=== PATIENT | male | born 1935 | race Caucasian/White ===

== ENCOUNTER 2016-06-02 03:44 | Emergency (ER) | payer MEDICARE, BC ==
[2016-06-02] MEDS ORDERED: TRAMADOL HCL 50 MG TABLET PO ONE ×2 (04:38→10:45)
--- NOTE | 2016-06-02 05:14 | ER Document Report ---
ED General - General Chief Complaint: Thigh Pain Stated Complaint: LEG PAIN Notes: Patient is a 1-year-old male who presents with complaint of hip pain. Patient' s history of hip replacement left hip. Says he symptoms have some arthritis in his right hip. Patient says that he is thinking about attempting to roll in bed at the longterm. He says he occasionally has to try enroll. His diabetic foot ulcers which are being treated. He says his son develop pain in both hips. The nursing facility given total. He says this relieved the pain is left. Still has some pain in his right hip and therefore he was sent to the ER because of some continued pain. He did not fall. He did not have any injury to his hip. Has no other complaints at this time. He does have a allergy to oxycodone due to history of hallucinations when taking it. He currently takes no other pain medications other than Tylenol. He denies any pain outside. No new pain in the thighs or knees. TRAVEL OUTSIDE OF THE [place] IN LAST 30 DAYS: No - Related Data Allergies/Adverse Reactions: acetaminophen [From Percocet] Allergy (Verified 01/02/16 17:52) oxycodone HCl [From Percocet] Allergy (Verified 01/02/16 17:52) Past Medical History - Social History Smoking Status: Former Smoker Frequency of alcohol use: None Drug Abuse: None Family History: Reviewed & Not Pertinent Patient has suicidal ideation: No Patient has homicidal ideation: No - Past Medical History Cardiac Medical History: Reports: Hx Hypertension Pulmonary Medical History: Reports: Hx COPD Renal/ Medical History: Reports: Hx Benign Prostatic Hyperplasia. Denies: Hx Peritoneal Dialysis Musculoskeltal Medical History: Reports Hx Arthritis Psychiatric Medical History: Reports: Hx Depression Past Surgical History: Reports: Hx Orthopedic Surgery - L hip replacement - Immunizations Hx Diphtheria, Pertussis, Tetanus Vaccination: Yes - unsure Hx Pneumococcal Vaccination: 12/31/15 Immunizations Comment: this is a [facility] pt who states he got flu and pneumonia maybe 100 days ago Review of Systems - Review of Systems Notes: My Normal Review Basic REVIEW OF SYSTEMS: CONSTITUTIONAL : Denies fever, chills, or sweats. Denies recent illness. RESPIRATORY: Denies cough, cold, or chest congestion. Denies shortness of breath, difficulty breathing, or wheezing. GASTROINTESTINAL: Denies abdominal pain. Denies nausea, vomiting, or diarrhea. Denies constipation. Last BM: MUSCULOSKELETAL: Bilateral hip pain. SKIN: Denies rash or skin lesions. HEMATOLOGIC : Denies easy bruising or bleeding. NEUROLOGICAL: Denies sensory or motor loss. ALL OTHER SYSTEMS REVIEWED AND NEGATIVE. Physical Exam - Vital signs Vitals: Temp Pulse Resp BP Pulse Ox 98.3 F 76 16 109/50 L 94 06/02/16 04:02 06/02/16 04:02 06/02/16 04:02 06/02/16 04:02 06/02/16 04:02 - Notes Notes: General Appearance: Well nourished, alert, cooperative, no acute distress, no obvious discomfort. Well-appearing. Vitals: reviewed, See vital signs table. Eyes: PERRL, EOMI, Conjuctiva clear Mouth: No decreasd moisture Lungs: No wheezing, No rales, No rhonci, No accessory muscle use, good air exchange bilaterally. Heart: Normal rate, Regular rythm, No murmur, no rub Abdomen: Normal BS, soft, No rigidity, No abdominal tenderness, No guarding, no rebound, no abdominal masses, no organomegaly Extremities: strength 5/5 in all extremities, good pulses in all extremities, no pain to palpation of left hip. Mild pain with range of motion of left hip. No pain to palpation left knee or lower leg. Patient has mild pain to palpation of the right hip. Patient has surgical increased pain when I put the hip through range of motion. The hip is not stiff. Is not red or swollen., no edema. Good peripheral pulses in both feet. Skin: warm, dry, appropriate color, no rash Neuro: speech clear, oriented x 3, normal affect, responds appropriately to questions. Course - Vital Signs Vital signs: Temp Pulse Resp BP Pulse Ox 98.3 F 76 16 109/50 L 94 06/02/16 04:02 06/02/16 04:02 06/02/16 04:02 06/02/16 04:02 06/02/16 04:02 - Transfer of Care Notes: 06/02/16 06:04 After the half a tablet of Ultram the patient is feeling much improved. He had no adverse effects. No hallucinations. He had no nausea vomiting. He looks very well. I'll write prescription of this for breakthrough pain to take Tylenol Sinus helping his pain. His pain seems very musculoskeletal on exam. His is reproduced with range of motion of the hip. This no redness or swelling or warmth to the hip. This no stiffness to suggest infection. I encourage patient to return to ER if has worsening pain, fevers, or feels unwell. Patient agrees with plan will be discharged home. Dictation of this chart was performed using voice recognition software; therefore, there may be some unintended grammatical errors. Discharge - Discharge Clinical Impression: Hip pain, right Condition: Good Disposition: HOME, SELF-CARE Additional Instructions: Please return to the ER immediately if you develop worsening pain, fevers, or feel unwell. Please stop taking the medication if it is causes vomiting, hallucinations, or is making you feel unwell. Please follow up with your doctor in 1-2 days for reevaluation. Prescriptions: Tramadol HCl [Ultram 50 mg Tablet] 25 mg PO Q6HP PRN #30 tablet PRN Reason: Referrals: SUNITA CONWAY MD [Primary Care Provider] - Follow up tomorrow
--- NOTE | 2016-06-02 10:46 | ER Document Report ---
Doctor's Note Notes: 06/02/16 10:46 Nurses getting ready discharge patient he requested additional Ultram and looked into the chart he got a half tablet of Ultram which helped this pain is being discharged home on Ultram psych him an additional half tablet of Ultram.
[2016-06-02 11:59] VITALS: BP 125/69
== END 2016-06-02 12:00 | disposition home or self-care (01) ==
LOC: ER 03:44
DX: M25.551 Pain in right hip (principal); M79.652 Pain in left thigh; Z87.891 Personal history of nicotine dependence
CPT/HCPCS: 99283; A9270

== ENCOUNTER → 2018-02-09 | Outpatient (CLI) | payer MEDICARE, BC ==
[2018-02-09 14:26] LABS: BLOOD UREA NITROGEN 25 mg/dL (7-20); CALCIUM 9.1 mg/dL (8.4-10.2); CHLORIDE 104 mmol/L (98-107); GLUCOSE 128 mg/dL (75-110); POTASSIUM 3.5 mmol/L (3.6-5.0)
[2018-02-09 14:38] LABS: CARBON DIOXIDE 33 mmol/L (22-30); SODIUM 141.4 mmol/L (137-145)
[2018-02-09 14:40] LABS: ANION GAP 4 (5-19)
== END ==
LOC: PNR 04-18 12:23 → EDSTATUS 04-19 08:10
PROVIDERS: ATTEND Internal Medicine
DX: N40.0 Benign prostatic hyperplasia without lower urinary tract symptoms (principal)
CPT/HCPCS: 80048